=== PATIENT | male | born 1965 | race Caucasian/White ===

== ENCOUNTER 2017-06-06 14:53 | Emergency (ER) | payer OTHER ==
[~2017-06-06] VITALS: Ht 170.2 cm; Wt 81.8 kg
[2017-06-06 14:53] VITALS: BP 145/89; PULSE 122; RESP 16; O2SAT 99
--- NOTE | 2017-06-06 16:10 | ED.REPORT ---
HPI-Eye Problem Date of Service Jun 06, 2017 ED Provider: History of Present Illness: sore above left eye for 2 days and additional sore on head also [facility] filled [facility], not seen yet. DM. wound started out as a pimple, wound is not a puncture injury, unknown tdap 06/18 Nursing Notes Stated Complaint: SWOLLEN EYE, PUNCTURE WOUND Chief Complaint: General Complaint Nursing Notes Reviewed: Yes Allergies: Coded Allergies: No Known Allergies (Unverified , 06/06/17) General Time Seen by MD: 16:09 Chief Complaint Left eye affected Hx Obtained From: Patient Sudden in Onset?: No Risk-Eye Problem Eye Injury Risk Stratification Diabetes mellitus Past Medical History Past Medical History Reports: Diabetes mellitus, Hypertension, Denies: Asthma Past Surgical History denies Smoking History Current Every Day Smoker (smoking for 20 years was smoking a pack a day , no on e cig) Social History 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 Alcohol Use: 1-3 per week Drug Use: THC Occupation lives with girlfriend, 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 06/06/2017 Ambulatory Status Independent Review of Systems Basic Review of Systems Respiratory: No shortness of breath, No cough, No wheeze : No dysuria, No frequency Psychiatric: Normal thought content Physical Exam Initial Vital Signs Vital Signs (First) Date Time Temp Pulse Resp B/P Pulse Ox O2 Delivery O2 Flow Rate FiO2 06/06/17 14:53 37.3 122 16 145/89 99 Room Air Initial VS: Reviewed, Vital signs abnormal General / Const: Well-developed, Well-nourished ENT: Mucous membranes moist, Conjunctiva normal, No scleral icterus Neck: Supple, Non-tender, Full range of motion Respiratory: Breath sounds normal, Clear to auscultation, No respiratory distress Cardiovascular: Regular rate & rhythm, Heart sounds normal, Intact distal pulses Abdomen / GI: Soft, Non-tender, No guarding, No rebound, No distention Back: No CVA tenderness Lymphatic: No lymphadenopathy Extremities: Vascular intact, Neuro intact, No swelling, No tenderness Skin: Warm, Dry, No cyanosis Neurologic: Alert, Oriented, Nonfocal Psychiatric: Mood/affect normal, Behavior normal, Normal thought content patient with 4 mm fibrin clot over left eye with moderate surrounding soft tissue swelling with mild erthyma. No floutance palpated. General/Constitutional: Awake, Alert, No acute distress, Well appearing, Well developed, Well hydrated, Well nourished, Cooperative, Not toxic appearing ENT: Atraumatic, Airway patent, Mucous membranes moist, Pharynx NL Rash / Lesion Notes: patient with multiple pick sores in various stages of healing in different parts of his body. Respiratory / Chest: Atraumatic, Breath sounds NL, Breath sounds = bilat, No respiratory distress Interpretation & Diagnostics Interpretation & Diagnostics: PROCEDURE: CT FACE WITH CONTRAST ([id number]) INDICATIONS: ? anything behind eye ? anything drainable TECHNIQUE: After the administration of intravenous contrast, 3.0 mm axial sections acquired from the mid-neck to the frontal sinuses, with coronal reformatting. For radiation dose reduction, the following was used: automated exposure control. COMPARISON: None. FINDINGS: Image quality: Good Soft tissues: There is soft tissue swelling over the nose, left frontal and temporal portions of the scalp and face done over the orbit and to the level approximately of the mid maxillary sinus. The soft tissue swelling is all pre-septal. No post septal edema or intra-or extraconal abnormality is seen. Visualized portion of brain is considered normal. Vascular: Visualized vascular structures appear patent throughout. Bony vascular foramina and canals appear normal. Bones: Facial bones appear intact, without fractures, erosions, or destruction. Visualized portions of the skull base and auditory canals also appear normal. Sinuses: Paranasal sinuses are aerated without fluid levels, mucosal thickening, or mucoceles. Mastoid air cells are aerated. IMPRESSION: Prominent subcutaneous edema/inflammation over the left side of the face. No intracranial involvement is seen. No post septal orbital involvement is seen. Sinuses are clear. No radiopaque foreign bodies are seen. Dictated by: Josh Luke M.D. on 06/06/2017 at 18:23 Approved by: Josh Luke M.D. on 06/06/2017 at 18:28 Lab Results Interpretation Result Diagram: 06/06/17 1708 06/06/17 1708 Test 06/06/17 17:02 06/06/17 17:08 Urine Color Straw (YELLOW) Urine Appearance Clear (CLEAR,HAZY) Urine pH 7.0 (5.0-8.0) Urine Specific [place] 1.010 (1.003-1.035) Urine Protein Negativemg/dL (NEG,TRACE) Urine Glucose (UA) 1000mg/dL (NEGATIVE) Urine Ketones Tracemg/dL (NEGATIVE) Urine Occult Blood Negative (NEGATIVE) Urine Nitrite Negative (NEGATIVE) Urine Bilirubin Negative (NEGATIVE) Urine Urobilinogen 1.0mg/dL (NORMAL) Urine Leukocyte Esterase Negative (NEGATIVE) Urine RBC 0-2/hpf (0-2) Urine WBC 0-5/hpf (0-5) Urine Epithelial Cells None/hpf (NONE-MOD) Urine Crystals None seen (NONE SEEN) Urine Bacteria None/hpf (NONE-FEW) Urine Hyaline Casts None/lpf (NONE) Urine Granular Casts None seen (NONE SEEN) Urine Waxy Casts None seen (NONE SEEN) Urine Red Blood Cell Casts None seen (NONE SEEN) Urine White Blood Cell Casts None seen (NONE SEEN) Urine Mucus None seen (None Seen) Urine Trichomonas None seen (NONE SEEN) Urine Yeast None (NONE SEEN) Urinalysis Comment None Urine Culture Reflexed Not indicated White Blood Count 11.3th/mm3 (3.8-10.1) Red Blood Count 4.90mil/mm3 (4.40-5.80) Hemoglobin 14.6g/dL (13.8-17.2) Hematocrit 42.5% (41.0-50.0) Mean Corpuscular Volume 86.7fL (81-100) Mean Corpuscular Hemoglobin 29.8pg (27.0-35.0) Mean Corpuscular Hemoglobin Concent 34.4% (32.0-37.0) Red Cell Distribution Width 12.3% (12.3-15.4) Platelet Count 214bil/L (150-400) Neutrophils (%) (Auto) 73.6% (40-74) Lymphocytes (%) (Auto) 18.7% (14-46) Monocytes (%) (Auto) 7.0% (4-12) Eosinophils (%) (Auto) 0.3% (0-5) Basophils (%) (Auto) 0.1% (0-3) Sodium Level 134mEq/L (134-144) Potassium Level 4.0mEq/L (3.5-5.2) Chloride Level 91mEq/L (97-108) Carbon Dioxide Level 28mmol/L (18-29) Blood Urea Nitrogen 11mg/dL (6-24) Creatinine 0.67mg/dL (0.76-1.27) Estimat Glomerular Filtration Rate 133mL/min (>59) Glucose Level 447mg/dL (60-99) Lactic Acid Level 2.0mmol/L (0.4-2.0) Calcium Level 9.7mg/dL (8.5-10.1) Total Bilirubin 0.7mg/dL (0.0-1.2) Aspartate Amino Transf (AST/SGOT) 20U/L (0-50) Alanine Aminotransferase (ALT/SGPT) 19U/L (0-44) Alkaline Phosphatase 146U/L (25-150) Total Protein 7.8g/dL (6.4-8.4) Albumin 4.1g/dL (3.4-5.0) Re-Eval/Medical Decision Med Decision/Clinical Course 51 year old male presents for evualation of swelling on the left side of the face. Patient states started as a pimple and he may have squeezed it. CT does not show any infection behind the eye or palpable floutance. Patient with pick sores in various stages of healing on different parts of his body. Ct is negative. Ice and toradol has decreased the swelling significanlty Discharge & Departure Primary Impression: Cellulitis Site of cellulitis: face Qualified Code: L03.211 - Cellulitis of face Disposition: Home Patient Instructions: Cellulitis (ED) Additional Instructions: Your labs show a mild elevation in white blood cell count. Your blood sugar is up at 466. The CT does not show any abscess formation. NEED to stop picking. Continue on antibiotics, bactrim in the am and pm. Use bactroban to the site 3 times a day. Use ibuprofen 800 mg up to 3 times a day to help decrease the pain and swelling. Continue with the ice as this has made a huge improvement in the amount of swelling that is present. REturn with any concerns. Referrals: Marybel Rodriguez (PCP) EDSupervising Provider for APC: Henri Willis DO copies to: Marybel Rodriguez Sue ARNP Jun 06, 2017 16:10
[2017-06-06] MEDS ORDERED: TdaP Vaccine 0.5 mL Inj IM ONE (16:30)
[2017-06-06] MEDS ORDERED: 0.9% Sodium Chloride 1,000 ML IV ONE ×2 (16:30→18:00)
[2017-06-06] MEDS ORDERED: cefTRIAXone Inj 2,000 MG in Dextrose 5% Minibag Plus 50 ML IV ONE (16:30)
[2017-06-06 17:12] LABS: BASOPHILS % (AUTO) 0.1 % (0-3); EOSINOPHILS % (AUTO) 0.3 % (0-5); Mean Corpuscular Hemoglobin 29.8 pg (27.0-35.0); Mean Corpuscular Volume 86.7 fL (81-100); NEUTROPHILS % (AUTO) 73.6 % (40-74); Platelet Count 214 bil/L (150-400)
[2017-06-06 17:28] LABS: APPEARANCE,URINE CLEAR (CLEAR,HAZY); COLOR,URINE STRAW (YELLOW); OCCULT BLOOD,URINE NEGATIVE (NEGATIVE)
--- NOTE | 2017-06-06 18:30 | DRSVH ---
PROCEDURE: CT FACE WITH CONTRAST ([id number]) INDICATIONS: ? anything behind eye ? anything drainable TECHNIQUE: After the administration of intravenous contrast, 3.0 mm axial sections acquired from the mid-neck to the frontal sinuses, with coronal reformatting. For radiation dose reduction, the following was use d: automated exposure control. COMPARISON: None. FINDINGS: Image quality: Good Soft tissues: There is soft tissue swelling over the nose, left frontal and temporal portions of the scalp and face done over the orbit and to the level approximately of the mid maxillary sinus. The sof t tissue swelling is all pre-septal. No post septal edema or intra-or extraconal abnormality is seen. Visualized portion of brain is considered normal. Vascular: Visualized vascular structures appear patent throughout. Bony vascular foramina and canal s appear normal. Bones: Facial bones appear intact, without fractures, erosions, or destruction. Visualized portions of the skull base and auditory canals also appear normal. Sinuses: Paranasal sinuses are aerated without fluid levels, mucosal thickening, or mucoceles. Mast oid air cells are aerated. IMPRESSION: Prominent subcutaneous edema/inflammation over the left side of the face. No intracranial involvement is seen. No post septal orbital involvement is seen. Sinuses are clear. No radiopaque fo reign bodies are seen. Dictated by: Josh Luke M.D. on 06/06/2017 at 18:23 Approved by: Josh Luke M.D. on 06/06/2017 at 18:28
[2017-06-06] MEDS ORDERED: Mupirocin 2% 22 Gm Ointment TOPICAL ONE (18:45)
[2017-06-06 19:28] VITALS: BP 133/85; PULSE 101; RESP 20; O2SAT 100
== END 2017-06-06 19:29 | disposition home or self-care (01) ==
LOC: SED 14:53
DX: L03.211 Cellulitis of face (principal); I10 Essential (primary) hypertension; E11.9 Type 2 diabetes mellitus without complications; F17.290 Nicotine dependence, other tobacco product, uncomplicated; F15.10 Other stimulant abuse, uncomplicated; F12.10 Cannabis abuse, uncomplicated; Z23 Encounter for immunization
CPT/HCPCS: 36415; 70487; 80053; 81000; 81002; 82948; 83605; 85025; 87040; 90471; 90715; 96365; 96375; 99285; J0696; J1885; J7030; Q9967